=== PATIENT | female | born 1975 ===

== ENCOUNTER 2024-02-24 08:38 | Day surgery (SDC) | payer OTHER ==
[2024-02-16 09:35] VITALS: BP 132/89
[2024-02-16 10:08] LABS: PH,URINE 5.5 (5.0-8.0); URINE APPEARANCE Clear; URINE BILIRRUBIN Negative (NEGATIVE); URINE BLOOD Large; URINE COLOR Yellow; URINE GLUCOSE Negative (NEGATIVE); URINE KETONE Negative (NEGATIVE); URINE LEUKOCYTE Small; URINE NITRATE Negative; URINE PROTEIN Trace (NEGATIVE); URINE UROBILINOGEN 0.2 E.U./dl
[2024-02-16 10:09] LABS: URINE EPITHELIAL CELLS 58.4 uL (0.0-38.8); URINE RBC 6.1 uL (0.0-20.8); URINE WBC 45.7 uL (0.0-23.2)
[2024-02-16 10:11] LABS: HEMATOCRIT 38.2 % (36.0-45.00); HEMOGLOBIN 12.7 g/dL (12.0-15.00); MEAN CELL VOLUME 84.9 fL (80.00-100.00); MEAN CORPUSCULAR HEMOGLOBIN 28.2 pg (27.00-32.0); MEAN CORPUSCULAR HGB CONC 33.2 g/dl (32.0-36.0); PLATELET COUNT 228 K/uL (150-450)
[2024-02-16 10:42] LABS: INR < 0.93; PARTIAL THROMBOPLASTIN TIME 26.7 SECONDS (22.0-34.0)
[2024-02-16 11:14] LABS: ALBUMIN 3.6 gm/dL (3.4-5.0); BILIRUBIN TOTAL 0.47 mg/dL (0.3-1.2); CALCIUM 9.2 mg/dL (8.5-10.1); CREATININE SERUM 0.67 mg/dL (0.55-1.02); GFR 93.94; GLOBULINA 2.8 G/DL (2.4-3.5); POTASSIUM 4.75 mEq/L (3.5-5.1); TOTAL PROTEIN 6.4 gm/dL (6.4-8.2); TSH 2.21 uIU/mL (0.358-3.74)
[~2024-02-24] VITALS: Ht 160 cm; Wt 77.1 kg
[2024-02-24] MEDS ORDERED: NAPR500T14 PO (11:55)
[2024-02-24] MEDS ORDERED: MORGIDOX100 MG PO (11:55)
[2024-02-24] MEDS ORDERED: MORPHINE SULFATE 4 MG/ML VIAL IV PRN (12:00)
[2024-02-24] MEDS ORDERED: PROMETHAZINE HCL 50 MG/ML AMPUL IM ONE (12:00)
== END 2024-02-24 16:40 | disposition home or self-care (01) ==
LOC: CIR.AMB 08:38
PROVIDERS: ATTEND Obstetrics & Gynecology
DX: D25.0 Submucous leiomyoma of uterus (principal); N84.0 Polyp of corpus uteri; N92.1 Excessive and frequent menstruation with irregular cycle